=== PATIENT | male | born 1955 | race Caucasian/White ===

== ENCOUNTER → 2017-12-29 | Outpatient (CLI) | payer BC, OTHER ==
[~2017-12-29] MED LIST: LACT1CAP37 PO; MULT-224 PO; SAW500CA PO
[2017-12-29 10:12] LABS: BASOPHILS # (AUTO) 0.02 x10^3/uL (0-0.1); BASOPHILS % (AUTO) 0 % (0-1); EOSINOPHILS # (AUTO) 0.31 x10^3/uL (0-0.4); EOSINOPHILS % (AUTO) 6 % (1-7); LYMPHOCYTES # (AUTO) 1.82 x10^3/uL (1-3.4); LYMPHOCYTES % (AUTO) 35 % (22-44); MD NO; MEAN CORPUSCULAR HEMOGLOBIN 29.9 pg (27.5-34.5); MEAN CORPUSCULAR HGB CONC 33.6 g/dL (33.2-36.2); MEAN PLATELET VOLUME 7.7 fL (7.4-10.4); MONOCYTES # (AUTO) 0.39 x10^3/uL (0.2-0.8); MONOCYTES % (AUTO) 8 % (2-9); NEUTROPHILS # (AUTO) 2.63 x10^3/uL (1.8-6.8); NEUTROPHILS % (AUTO) 51 % (42-75); PLATELET COUNT 259 x10^3/uL (130-400); RED BLOOD COUNT 5.15 x10^6/uL (4.38-5.82); RED CELL DISTRIBUTION WIDTH 13.5 % (9.4-14.8)
[2017-12-29 10:24] LABS: ANION GAP 5 mmol/L (5-15); CALCIUM 8.7 mg/dL (8.5-10.1); CHLORIDE 107 mmol/L (98-107); CREATININE 0.89 mg/dL (0.7-1.3)
[2017-12-29 10:55] LABS: INTERNATIONAL NORMALIZED RATIO 1.01 (0.93-1.1); PROTHROMBIN TIME 10.4 Seconds (9.6-11.5)
== END | disposition home or self-care (01) ==
LOC: STAR 09:10
PROVIDERS: ATTEND Neurological Surgery
DX: Z01.818 Encounter for other preprocedural examination (principal); M48.062 Spinal stenosis, lumbar region with neurogenic claudication; R91.1 Solitary pulmonary nodule
CPT/HCPCS: 36415; 71046; 80048; 85025; 85610; 85730; 93005

== ENCOUNTER 2018-01-12 05:53 | Inpatient (IN) | payer BC ==
[~2018-01-12] VITALS: Ht 182.9 cm; Wt 73.3 kg
[2018-01-12] MEDS ORDERED: LACTATED RINGERS 1,000 ML IV SCH (06:26)
[2018-01-12 06:28] VITALS: BP 135/86
[2018-01-12] MEDS ORDERED: BUPIVACAINE/PF 0.5% ONE (06:46)
[2018-01-12] MEDS ORDERED: BACITRACIN 50,000 UNIT ONE (06:46)
[2018-01-12] MEDS ORDERED: EPINEPHRINE 1 MG/ML, 1ML ONE (06:46)
[2018-01-12] MEDS ORDERED: THROMBIN 5,000 UNIT VIAL TP ONE (06:46)
[2018-01-12] MEDS ORDERED: REMIFENTANIL 1 MG ONE (07:21)
[2018-01-12] MEDS ORDERED: KETAMINE 10 MG/ML, 20ML ONE (07:21)
[2018-01-12] MEDS ORDERED: MIDAZOLAM 1 MG/ML, 2ML ONE ×2 (07:23)
[2018-01-12] MEDS ORDERED: FENTANYL PF 100 MCG/2ML ONE ×2 (07:24→10:44)
[2018-01-12] MEDS ORDERED: DEXAMETHASONE 4 MG/ML, 1ML ONE (07:28)
[2018-01-12] MEDS ORDERED: SUCCINYLCHOLINE 20 MG/ML, 10ML ONE (08:32)
[2018-01-12] MEDS ORDERED: ONDANSETRON 2MG/ML, 2ML ONE ×2 (08:32→08:33)
[2018-01-12] MEDS ORDERED: METOCLOPRAMIDE 5 MG/ML, 2ML ONE (08:32)
[2018-01-12] MEDS ORDERED: CEFAZOLIN 1,000 MG ONE ×2 (08:33)
[2018-01-12] MEDS ORDERED: PROPOFOL 10 MG/ML, 20ML ONE ×4 (08:33→09:22)
[2018-01-12] MEDS ORDERED: LIDOCAINE-MPF 2% ,5ML ONE (08:33)
[2018-01-12] MEDS ORDERED: PHENYLEPHRINE 10 MG/ML ONE (08:35)
[2018-01-12] MEDS ORDERED: EPHEDRINE 50 MG/ML, 1ML ONE (08:35)
[2018-01-12] MEDS ORDERED: LIDOCAINE GEL 2%, 5ML ONE (08:37)
[2018-01-12] MEDS ORDERED: MIDAZOLAM 1 MG/ML, 2ML IV PRN (09:00)
[2018-01-12] MEDS ORDERED: OXYcodone 5 MG/5 ML ORAL.SOL UDC PO PRN (09:00)
[2018-01-12] MEDS ORDERED: HYDROmorphone 1 MG/ML, 1ML IV PRN (09:00)
[2018-01-12] MEDS ORDERED: LABETALOL 5MG/ML, 20ML IV PRN ×2 (09:00→12:30)
[2018-01-12] MEDS ORDERED: ONDANSETRON 2MG/ML, 2ML IVPush PRN (09:00)
[2018-01-12] MEDS ORDERED: MEPERIDINE/PF 25MG/0.5ML IVPush PRN (09:00)
[2018-01-12] MEDS ORDERED: FENTANYL PF 100 MCG/2ML IV PRN (09:00)
[2018-01-12] MEDS ORDERED: MEPERIDINE/PF 25MG/0.5ML ONE (10:44)
[2018-01-12] MEDS ORDERED: CYCLOBENZAPRINE 10 MG TABLET PO PRN (12:30)
[2018-01-12] MEDS ORDERED: PROMETHAZINE 25 MG/ML, 1ML IM PRN (12:30)
[2018-01-12] MEDS ORDERED: HYDROcodone/APAP 5/325 TABLET PO PRN (12:30)
[2018-01-12] MEDS ORDERED: ONDANSETRON 2MG/ML, 2ML IV PRN (12:30)
[2018-01-12] MEDS ORDERED: MAGNESIUM HYDROXIDE 8%, 30ML UDC PO PRN (12:30)
[2018-01-12] MEDS ORDERED: BISACODYL 10 MG SUPP PR PRN (12:30)
[2018-01-12] MEDS ORDERED: DIPHENHYDRAMINE 50 MG/ML, 1ML IVPush PRN (12:30)
[2018-01-12] MEDS ORDERED: DIPHENHYDRAMINE 50 MG CAPSULE PO PRN (12:30)
[2018-01-12] MEDS ORDERED: DIPHENHYDRAMINE 50 MG/ML, 1ML IM PRN (12:30)
[2018-01-12] MEDS ORDERED: HYDROmorphone 2MG TABLET PO PRN (12:30)
[2018-01-12] MEDS ORDERED: HYDROmorphone 2 MG/ML, 1ML IM PRN (12:30)
[2018-01-12] MEDS ORDERED: METHOCARBAMOL 750 MG TABLET PO PRN (12:30)
[2018-01-12] MEDS: NS + 20MEQ KCL 1,000 ML IV SCH (13:25)
[2018-01-12 14:30] VITALS: BP 131/71
[2018-01-12] MEDS: CEFAZOLIN PMX 1GM/50ML 50 ML IVPB SCH ×2 (15:18→23:22)
[2018-01-12 20:52] VITALS: BP 128/76
[2018-01-12] MEDS ORDERED: OXYcodone/APAP 5/325MG TABLET PO PRN (23:00)
[2018-01-12 23:26] VITALS: BP 122/66
[2018-01-13] MEDS: NS + 20MEQ KCL 1,000 ML IV SCH ×2 (01:50→15:10)
[2018-01-13 04:00] VITALS: BP 116/66
[2018-01-13] MEDS ORDERED: CYCL-259 PO (08:27)
[2018-01-13 08:33] VITALS: BP 110/63
[2018-01-13] MEDS ORDERED: SENNA/DOCUSATE TABLET PO SCH (09:00)
[2018-01-13 12:40] VITALS: BP 112/64
[2018-01-13] MEDS ORDERED: OXYC-302 PO (15:32)
== END 2018-01-13 16:05 | disposition home or self-care (01) | DRG 520 ==
LOC: OUT 05:53 → 4NOR 11:47 → OUT 11:54 → DCLOUNGE 01-13 15:48
PROVIDERS: ADMIT Neurological Surgery; ATTEND Neurological Surgery
PROC: 01NB0ZZ Release Lumbar Nerve, Open Approach (ICD-10-PCS; 2018-01-12)
PROC: 0SB20ZZ Excision of Lumbar Vertebral Disc, Open Approach (ICD-10-PCS; principal; 2018-01-12 07:30)
DX: M48.061 Spinal stenosis, lumbar region without neurogenic claudication (principal); Z87.891 Personal history of nicotine dependence; M47.9 Spondylosis, unspecified; M54.10 Radiculopathy, site unspecified
CPT/HCPCS: 72100; 76000; J0171; J0690; J1100; J2175; J2250; J2270; J2405; J2704; J3010; J3480; J3490; C1781; J0330; J2370; J2765; J7120